=== PATIENT | female | born 1985 | race Caucasian/White ===

== ENCOUNTER 2019-10-22 08:09 | Emergency (ER) | payer MEDICAID, OTHER ==
[~2019-10-22] VITALS: Ht 170.2 cm; Wt 88.1 kg
[~2019-10-22 08:09] MED LIST: PREN-385 PO
[2019-10-22 08:13] VITALS: BP 130/85
[2019-10-22 08:57] LABS: BASOPHILS # (AUTO) 0.1 K/uL (0.00-0.22); BASOPHILS % (AUTO) 1.1 % (0.0-2.0); EOSINOPHILS # (AUTO) 0.4 K/uL (0-0.4); EOSINOPHILS % (AUTO) 6.9 % (0.0-4.0); HEMATOCRIT 37.8 % (36-48); HEMOGLOBIN 12.8 g/dL (12.0-16.0); LYMPHOCYTES # (AUTO) 1.3 K/uL (2.5-16.5); LYMPHOCYTES % (AUTO) 23.2 % (20.5-51.1); MEAN CORPUSCULAR HEMOGLOBIN 30 pg (27-31); MEAN CORPUSCULAR HGB CONC 34 g/dL (33-37); MEAN CORPUSCULAR VOLUME 89.3 fL (80-94); MONOCYTES # (AUTO) 0.4 K/uL (0.8-1.0); NEUTROPHILS # (AUTO) 3.6 K/uL (1.8-7.7); NEUTROPHILS % (AUTO) 61.8 % (42.2-75.2); PLATELET COUNT (AUTO) 315 K/uL (140-450); RED BLOOD CELL COUNT(AUTO) 4.23 MIL/uL (4.20-5.40); RED CELL DISTRIBUTION WIDTH 12.8 % (11.6-13.7); WHITE BLOOD COUNT (AUTO) 5.8 K/uL (4.8-10.8)
[2019-10-22 11:25] VITALS: BP 128/80
[2019-10-22 12:32] LABS: APPEARANCE,URINE HAZY (CLEAR); COLOR,URINE RED (YELLOW)
[2019-10-22 12:33] LABS: PH,URINE 6.5 (5.0-9.0)
[2019-10-22 12:34] LABS: BILIRUBIN,URINE NEGATIVE (NEGATIVE); BLOOD, URINE 3+ (NEGATIVE); LEUKOCYTE ESTERASE ,URINE 1+ (NEGATIVE); NITRITE, URINE POSITIVE (NEGATIVE); UGLUCOSE NEGATIVE (NEGATIVE)
[2019-10-22 12:35] LABS: RBC,URINE TOO NUMEROUS TO COUN /HPF (0-5)
[2019-10-22 12:36] LABS: WBC,URINE 0-5 /HPF (0-5)
== END 2019-10-22 11:26 | disposition home or self-care (01) ==
LOC: MED 08:09
DX: O20.0 Threatened abortion (principal); O23.41 Unspecified infection of urinary tract in pregnancy, first trimester; Z3A.01 Less than 8 weeks gestation of pregnancy
CPT/HCPCS: 36415; 76817; 81001; 81025; 84702; 85025; 86900; 86901; 87086; 87186; 99284; Q0092